=== PATIENT | male | born 1985 ===

== ENCOUNTER 2017-08-17 11:27 | Emergency (ER) | payer OTHER ==
[2017-08-17 11:31] VITALS: BP 122/86; PULSE 68; TEMP 97; BMI 23.7
[2017-08-17 11:51] VITALS: RESP 16; O2SAT 99
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
[2017-08-17] MEDS ORDERED: Sodium Chloride 0.9% 1,000 ML IV STA (13:20)
[2017-08-17 13:51] LABS: EOS # 0.1 K/uL (0.0-0.7); EOS % 2.6 % (0.0-4.0); HEMOGLOBIN 16.2 g/dL (12.0-18.0); LYMPH # 2.3 K/uL (1.0-4.3); LYMPH % 58.2 % (20.0-40.0); MEAN CELL VOLUME 98.3 fl (80.0-94.0); MEAN CORPUSCULAR HEMOGLOBIN 34.6 pg (27.0-31.0); MEAN CORPUSCULAR HGB CONC 35.2 g/dL (33.0-37.0); MEAN PLATELET VOLUME 7.7 fl (7.2-11.7); MONO # 0.4 K/uL (0.0-0.8); MONO % 10.9 % (0.0-10.0); NEUT # 1.1 K/uL (1.8-7.0); NEUT % 27.3 % (50.0-75.0); NRBC % 0.3 % (0.0-0.0); RBC 4.67 Mil/uL (4.40-5.90); RED CELL DISTRIBUTION WIDTH 12.9 % (11.5-14.5); WHITE BLOOD COUNT 3.9 K/uL (4.8-10.8)
[2017-08-17 14:09] LABS: ALB/GLOB RATIO 1.3 (1.0-2.1); ALT/SGPT 39 U/L (21-72); AST/SGOT 28 U/L (17-59); BLOOD UREA NITROGEN 14 mg/dl (9-20); CALCIUM 9.4 mg/dL (8.4-10.2); GFR AFRICAN-AMERICAN > 60; GFR NON-AFRICAN AMERICAN > 60
== END 2017-08-17 11:55 | disposition home or self-care (01) ==
LOC: H.ER 11:27
DX: S09.90XA Unspecified injury of head, initial encounter (principal); V49.9XXA Car occupant (driver) (passenger) injured in unspecified traffic accident, initial encounter
CPT/HCPCS: 70450; 80053; 85025; 96361; 96374; 96375; 99283; J1885; J2765; J7040